=== PATIENT | male | born 1970 | race African-American/Black ===

== ENCOUNTER 2021-09-29 13:16 | Inpatient (IN) | payer BC, OTHER ==
[2021-09-29] MEDS ORDERED: dilTIAZem HCL 50 MG/10 ML - 10 ML VIAL IVPUSH ONE ×5 (13:53→21:59)
[2021-09-29] MEDS ORDERED: dilTIAZem HCL 50 MG/10 ML - 10 ML VIAL ONE (14:03)
[2021-09-29 14:13] LABS: BASO % 0.9 % (0-2.0); EOS % 2.6 % (0-4.5); HEMATOCRIT 35.4 % (35.4-49); LYMPH % 16.2 % (8-40); MCH 28.1 pg (25.7-33.7); MCHC 33.8 g/dl (32.0-35.9); MEAN CELL VOLUME 83.2 fl (80-96); MEAN PLT VOLUME 7.7 fl (7.5-11.1); NEUT % 70.3 % (42.8-82.8); PLATELET COUNT 360 10^3/uL (134-434); RBC 4.25 M/mm3 (4.00-5.60); RDW 15.3 % (11.9-15.9); WHITE BLOOD COUNT 6.4 K/mm3 (4.0-10.0)
[2021-09-29 14:19] LABS: INR 1.55 (0.83-1.09); PROTHROMBIN TIME (PATIENT) 17.9 SEC (9.7-13.0)
[2021-09-29 14:22] LABS: ACTIVATED PTT 29.3 SECONDS (25.2-36.5)
[2021-09-29 14:34] LABS: ALBUMIN 2.5 g/dl (3.4-5.0); BLOOD UREA NITROGEN 16.6 mg/dL (7-18); CALCIUM 8.4 mg/dL (8.5-10.1); MAGNESIUM 2.5 mg/dL (1.8-2.4)
[2021-09-29 14:37] LABS: CREATININE 1.1 mg/dL (0.55-1.3)
[2021-09-29 14:39] LABS: TOT PROT 5.6 g/dl (6.4-8.2)
[2021-09-29] MEDS ORDERED: ACETAMINOPHEN 1000 MG/100 ML BAG IVPB ONE (15:31)
[2021-09-29] MEDS ORDERED: ACETAMINOPHEN INJECTION 100 ML IVPB ONE (16:09)
[2021-09-29] MEDS ORDERED: DIGOXIN 0.5 MG/2 ML AMPUL IVPUSH ONE (16:52)
[2021-09-29] MEDS ORDERED: DIGOXIN 0.5 MG/2 ML AMPUL ONE (17:43)
[2021-09-29 21:06] LABS: URINE COLOR YELLOW
[2021-09-29 21:07] LABS: URINE APPEARANCE CLEAR; URINE BILIRUBIN NEGATIVE (NEGATIVE); URINE GLUCOSE (UA) NEGATIVE (NEGATIVE); URINE KETONE NEGATIVE (NEGATIVE); URINE LEUK ESTERASE NEGATIVE (NEGATIVE); URINE NITRITE NEGATIVE (NEGATIVE); URINE PROTEIN NEGATIVE (NEGATIVE)
[2021-09-29 21:49] LABS: HIV INTERPRETATION NEGATIVE (NEGATIVE)
[2021-09-29] MEDS ORDERED: CARVEDILOL 25 MG TABLET (FP) PO SCH (22:00)
[2021-09-29] MEDS ORDERED: ENOXAPARIN NA (PORCINE) 30 MG/0.3 ML DISP.SYRIN SQ SCH (22:00)
[2021-09-29] MEDS ORDERED: busPIRone HCL 5 MG TABLET ONE (23:25)
[2021-09-29] MEDS ORDERED: CARVEDILOL 25 MG TABLET (FP) ONE (23:26)
[2021-09-29] MEDS ORDERED: ENOXAPARIN NA (PORCINE) 80 MG/0.8 ML DISP.SYRIN SQ ONE (23:26)
[2021-09-29] MEDS ORDERED: ATORVASTATIN CA 40 MG TABLET (FP) ONE (23:26)
[2021-09-29] MEDS ORDERED: dilTIAZem HCL 125 MG/25 ML - 25 ML VIAL ONE (23:27)
[2021-09-29] MEDS: ENOXAPARIN NA (PORCINE) 80 MG/0.8 ML DISP.SYRIN SQ SCH (23:39)
[2021-09-29] MEDS: busPIRone HCL 5 MG TABLET PO SCH (23:39)
[2021-09-29] MEDS: ATORVASTATIN CA 40 MG TABLET (FP) PO SCH (23:39)
[2021-09-29] MEDS: CARVEDILOL 25 MG TABLET (FP) PO SCH (23:39)
[2021-09-30 01:10] VITALS: BMI 28.4
[2021-09-30] MEDS: busPIRone HCL 5 MG TABLET PO SCH ×2 (06:27→13:30)
[2021-09-30 07:24] LABS: BASO % 0.4 % (0-2.0); EOS % 4.6 % (0-4.5); HEMATOCRIT 33.1 % (35.4-49); HEMOGLOBIN 11.1 GM/dL (11.7-16.9); LYMPH % 15.8 % (8-40); MCH 27.9 pg (25.7-33.7); MCHC 33.5 g/dl (32.0-35.9); MEAN CELL VOLUME 83.3 fl (80-96); MEAN PLT VOLUME 7.9 fl (7.5-11.1); NEUT % 69.2 % (42.8-82.8); PLATELET COUNT 374 10^3/uL (134-434); RBC 3.98 M/mm3 (4.00-5.60); RDW 15.2 % (11.9-15.9); WHITE BLOOD COUNT 6.4 K/mm3 (4.0-10.0)
[2021-09-30 07:56] LABS: CALCIUM 7.8 mg/dL (8.5-10.1)
[2021-09-30 08:00] LABS: CREATININE 0.9 mg/dL (0.55-1.3)
[2021-09-30 08:01] LABS: BILIRUBIN,TOTAL 0.8 mg/dL (0.2-1); TOT PROT 4.9 g/dl (6.4-8.2)
[2021-09-30 08:18] LABS: ALBUMIN 1.9 g/dl (3.4-5.0)
[2021-09-30] MEDS: CARVEDILOL 25 MG TABLET (FP) PO SCH ×2 (09:57→21:27)
[2021-09-30] MEDS: ENOXAPARIN NA (PORCINE) 80 MG/0.8 ML DISP.SYRIN SQ SCH ×2 (09:57→21:32)
[2021-09-30] MEDS: ENALAPRIL MALEATE 5 MG TABLET PO SCH (09:57)
[2021-09-30] MEDS: guaiFENesin 200 MG/10 ML 10 ML UNIT-DOSE CUPS PO PRN ×2 (09:58→21:42)
[2021-09-30] MEDS ORDERED: ENALAPRIL MALEATE 5 MG TABLET PO SCH (10:00)
[2021-09-30] MEDS: buPROPion HCL 100 MG TABLET PO SCH ×3 (11:00→21:28)
[2021-09-30] MEDS ORDERED: methylPREDNISolone NA SUCC 40 MG/1 ML VIAL IVPUSH ONE (11:04)
[2021-09-30] MEDS: FAMOTIDINE 40 MG TABLET PO SCH (13:30)
[2021-09-30] MEDS: INSULIN (NOVOLOG) ASPART 100 UNITS/ML 10ML VIAL SQ SCH (17:17)
[2021-09-30] MEDS: ATORVASTATIN CA 40 MG TABLET (FP) PO SCH (21:27)
[2021-09-30] MEDS: INSULIN (LEVEMIR) 100 UNITS/ML UNITS SQ SCH ×2 (21:31→21:35)
[2021-09-30 23:07] LABS: SARS-CoV-2 NAA Not Detected (Not Detected)
[2021-10-01] MEDS: INSULIN (NOVOLOG) ASPART 100 UNITS/ML 10ML VIAL SQ SCH ×3 (06:41→17:31)
[2021-10-01 07:05] LABS: INR 1.4 (0.83-1.09); PROTHROMBIN TIME (PATIENT) 16.1 SEC (9.7-13.0)
[2021-10-01] MEDS: ENALAPRIL MALEATE 5 MG TABLET PO SCH (10:49)
[2021-10-01] MEDS: FAMOTIDINE 40 MG TABLET PO SCH (10:49)
[2021-10-01] MEDS: CARVEDILOL 25 MG TABLET (FP) PO SCH ×2 (10:49→21:54)
[2021-10-01] MEDS: buPROPion HCL 100 MG TABLET PO SCH ×2 (10:49→21:57)
[2021-10-01] MEDS: guaiFENesin 200 MG/10 ML 10 ML UNIT-DOSE CUPS PO PRN ×2 (10:49→22:06)
[2021-10-01] MEDS: ENOXAPARIN NA (PORCINE) 80 MG/0.8 ML DISP.SYRIN SQ SCH ×2 (10:50→22:06)
[2021-10-01] MEDS ORDERED: CEFTRIAXONE 1 GM in DEXTROSE 5%-WATER - 50 ML IVPB SCH (12:00)
[2021-10-01] MEDS ORDERED: DEXTROSE 5%-WATER - 50 ML IVPB ONE (13:17)
[2021-10-01] MEDS ORDERED: cefTRIAXone SODIUM 1 GM VIAL ONE (13:17)
[2021-10-01] MEDS ORDERED: WARFARIN NA 5 MG TABLET PO SCH (18:00)
[2021-10-01 18:07] LABS: SARS-CoV-2 NAA Detected (Not Detected)
[2021-10-01] MEDS ORDERED: DEXAMETHASONE SOD PHOSPHATE 10 MG/1 ML VIAL IVPUSH SCH (18:30)
[2021-10-01] MEDS ORDERED: REMDESIVIR 200 MG in SODIUM CHLORIDE 250 ML IVPB ONE (19:00)
[2021-10-01] MEDS: INSULIN (LEVEMIR) 100 UNITS/ML UNITS SQ SCH ×2 (21:53→22:02)
[2021-10-01] MEDS: ATORVASTATIN CA 40 MG TABLET (FP) PO SCH (21:54)
[2021-10-02] MEDS: INSULIN (NOVOLOG) ASPART 100 UNITS/ML 10ML VIAL SQ SCH ×3 (06:30→17:42)
[2021-10-02] MEDS: guaiFENesin 200 MG/10 ML 10 ML UNIT-DOSE CUPS PO PRN ×2 (06:31→20:24)
[2021-10-02 08:35] LABS: INR 1.39 (0.83-1.09)
[2021-10-02] MEDS: ENOXAPARIN NA (PORCINE) 80 MG/0.8 ML DISP.SYRIN SQ SCH ×2 (09:30→21:40)
[2021-10-02] MEDS: DEXAMETHASONE SOD PHOSPHATE 10 MG/1 ML VIAL IVPUSH SCH (09:30)
[2021-10-02] MEDS: ENALAPRIL MALEATE 5 MG TABLET PO SCH (09:31)
[2021-10-02] MEDS: FAMOTIDINE 40 MG TABLET PO SCH (09:31)
[2021-10-02] MEDS: CARVEDILOL 25 MG TABLET (FP) PO SCH ×2 (09:31→21:40)
[2021-10-02] MEDS: buPROPion HCL 100 MG TABLET PO SCH ×2 (09:32→21:40)
[2021-10-02] MEDS ORDERED: CHOLECALCIFEROL (VIT D3 5000 UNITS) 125 MCG TAB PO SCH (10:00)
[2021-10-02] MEDS ORDERED: DEXAMETHASONE SOD PHOSPHATE 10 MG/1 ML VIAL IVPUSH SCH (10:00)
[2021-10-02] MEDS: ASCORBIC ACID 500 MG TABLET (FP) PO SCH (10:19)
[2021-10-02] MEDS: ZINC SULFATE 220 MG CAPSULE (FP) PO SCH (10:19)
[2021-10-02] MEDS ORDERED: METOPROLOL TARTRATE 5 MG/5 ML VIAL IVPUSH PRN (12:19)
[2021-10-02] MEDS: WARFARIN NA 5 MG TABLET PO SCH (17:29)
[2021-10-02] MEDS: REMDESIVIR 100 MG in SODIUM CHLORIDE 250 ML IVPB SCH (20:06)
[2021-10-02] MEDS: ATORVASTATIN CA 40 MG TABLET (FP) PO SCH (21:40)
[2021-10-02] MEDS: INSULIN (LEVEMIR) 100 UNITS/ML UNITS SQ SCH (21:48)
[2021-10-03] MEDS ORDERED: MELATONIN 1 MG TABLET PO ONE (02:06)
[2021-10-03] MEDS: guaiFENesin 200 MG/10 ML 10 ML UNIT-DOSE CUPS PO PRN ×3 (02:43→20:08)
[2021-10-03] MEDS: INSULIN (NOVOLOG) ASPART 100 UNITS/ML 10ML VIAL SQ SCH ×3 (06:18→17:07)
[2021-10-03 07:50] LABS: INR 1.49 (0.83-1.09); PROTHROMBIN TIME (PATIENT) 17.2 SEC (9.7-13.0)
[2021-10-03] MEDS: CARVEDILOL 25 MG TABLET (FP) PO SCH ×2 (09:05→21:20)
[2021-10-03] MEDS: ASCORBIC ACID 500 MG TABLET (FP) PO SCH (09:05)
[2021-10-03] MEDS: ZINC SULFATE 220 MG CAPSULE (FP) PO SCH (09:05)
[2021-10-03] MEDS: ENALAPRIL MALEATE 5 MG TABLET PO SCH (09:05)
[2021-10-03] MEDS: CHOLECALCIFEROL (VIT D3) 1,000 UNIT (25 MCG) TABLET PO SCH (09:06)
[2021-10-03] MEDS: FAMOTIDINE 40 MG TABLET PO SCH (09:06)
[2021-10-03] MEDS: buPROPion HCL 100 MG TABLET PO SCH ×2 (09:06→20:08)
[2021-10-03] MEDS: DEXAMETHASONE SOD PHOSPHATE 10 MG/1 ML VIAL IVPUSH SCH (09:07)
[2021-10-03] MEDS: ENOXAPARIN NA (PORCINE) 80 MG/0.8 ML DISP.SYRIN SQ SCH ×2 (09:07→21:20)
[2021-10-03] MEDS: WARFARIN NA 5 MG TABLET PO SCH (18:40)
[2021-10-03] MEDS: REMDESIVIR 100 MG in SODIUM CHLORIDE 250 ML IVPB SCH (18:40)
[2021-10-03] MEDS: INSULIN (LEVEMIR) 100 UNITS/ML UNITS SQ SCH (21:19)
[2021-10-03] MEDS: ATORVASTATIN CA 40 MG TABLET (FP) PO SCH (21:20)
[2021-10-03] MEDS ORDERED: PHENOL 177 ML SPRAY BOTTLE MM PRN (23:57)
[2021-10-04] MEDS: METOPROLOL TARTRATE 5 MG/5 ML VIAL IVPUSH PRN ×3 (06:33→21:22)
[2021-10-04] MEDS: INSULIN (NOVOLOG) ASPART 100 UNITS/ML 10ML VIAL SQ SCH ×3 (06:38→17:41)
[2021-10-04 07:43] LABS: INR 1.71 (0.83-1.09); PROTHROMBIN TIME (PATIENT) 19.8 SEC (9.7-13.0)
[2021-10-04 08:07] LABS: CALCIUM 8.6 mg/dL (8.5-10.1)
[2021-10-04 08:08] LABS: BLOOD UREA NITROGEN 24.6 mg/dL (7-18)
[2021-10-04 08:12] LABS: BILIRUBIN,TOTAL 0.3 mg/dL (0.2-1); TOT PROT 5.1 g/dl (6.4-8.2)
[2021-10-04 08:30] LABS: BASO % 0.4 % (0-2.0); EOS % 0.6 % (0-4.5); HEMATOCRIT 34.6 % (35.4-49); HEMOGLOBIN 11.6 GM/dL (11.7-16.9); LYMPH % 23.8 % (8-40); MCH 27.7 pg (25.7-33.7); MCHC 33.5 g/dl (32.0-35.9); MEAN CELL VOLUME 82.8 fl (80-96); MEAN PLT VOLUME 7.8 fl (7.5-11.1); MONO % 8.6 % (3.8-10.2); NEUT % 66.6 % (42.8-82.8); PLATELET COUNT 569 10^3/uL (134-434); RBC 4.18 M/mm3 (4.00-5.60); RDW 15.2 % (11.9-15.9); WHITE BLOOD COUNT 8.4 K/mm3 (4.0-10.0)
[2021-10-04 08:37] LABS: ALBUMIN 2.4 g/dl (3.4-5.0)
[2021-10-04] MEDS: CHOLECALCIFEROL (VIT D3) 1,000 UNIT (25 MCG) TABLET PO SCH (09:17)
[2021-10-04] MEDS: CARVEDILOL 25 MG TABLET (FP) PO SCH ×2 (09:17→21:21)
[2021-10-04] MEDS: guaiFENesin 200 MG/10 ML 10 ML UNIT-DOSE CUPS PO PRN ×2 (09:17→20:17)
[2021-10-04] MEDS: FAMOTIDINE 40 MG TABLET PO SCH (09:17)
[2021-10-04] MEDS: ENALAPRIL MALEATE 5 MG TABLET PO SCH (09:18)
[2021-10-04] MEDS: ZINC SULFATE 220 MG CAPSULE (FP) PO SCH (09:18)
[2021-10-04] MEDS: ASCORBIC ACID 500 MG TABLET (FP) PO SCH (09:18)
[2021-10-04] MEDS: ENOXAPARIN NA (PORCINE) 80 MG/0.8 ML DISP.SYRIN SQ SCH ×2 (09:19→21:21)
[2021-10-04] MEDS: DEXAMETHASONE SOD PHOSPHATE 10 MG/1 ML VIAL IVPUSH SCH (09:19)
[2021-10-04 09:37] LABS: ERYTHROCYTE SEDIMENTATION RATE 36 mm/hr (0-20)
[2021-10-04] MEDS ORDERED: DIGOXIN 0.25 MG TABLET PO ONE (11:15)
[2021-10-04] MEDS: WARFARIN NA 5 MG TABLET PO SCH (17:43)
[2021-10-04] MEDS: REMDESIVIR 100 MG in SODIUM CHLORIDE 250 ML IVPB SCH (18:00)
[2021-10-04] MEDS: buPROPion HCL 100 MG TABLET PO SCH (20:11)
[2021-10-04] MEDS: INSULIN (LEVEMIR) 100 UNITS/ML UNITS SQ SCH (21:21)
[2021-10-04] MEDS: ATORVASTATIN CA 40 MG TABLET (FP) PO SCH (21:21)
[2021-10-05] MEDS: INSULIN (NOVOLOG) ASPART 100 UNITS/ML 10ML VIAL SQ SCH ×3 (06:54→17:34)
[2021-10-05] MEDS: ENALAPRIL MALEATE 5 MG TABLET PO SCH (10:08)
[2021-10-05] MEDS: CHOLECALCIFEROL (VIT D3) 1,000 UNIT (25 MCG) TABLET PO SCH (10:08)
[2021-10-05] MEDS: CARVEDILOL 25 MG TABLET (FP) PO SCH ×2 (10:08→22:41)
[2021-10-05] MEDS: buPROPion HCL 100 MG TABLET PO SCH ×2 (10:08→19:51)
[2021-10-05] MEDS: DIGOXIN 0.125 MG TABLET PO SCH (10:08)
[2021-10-05] MEDS: ZINC SULFATE 220 MG CAPSULE (FP) PO SCH (10:08)
[2021-10-05] MEDS: FAMOTIDINE 40 MG TABLET PO SCH (10:08)
[2021-10-05] MEDS: ASCORBIC ACID 500 MG TABLET (FP) PO SCH (10:08)
[2021-10-05] MEDS: DEXAMETHASONE SOD PHOSPHATE 10 MG/1 ML VIAL IVPUSH SCH (10:09)
[2021-10-05] MEDS: ENOXAPARIN NA (PORCINE) 80 MG/0.8 ML DISP.SYRIN SQ SCH ×2 (10:09→22:35)
[2021-10-05] MEDS ORDERED: ARIPIPRAZOLE NR ONE (14:00)
[2021-10-05 16:53] LABS: INR 2.01 (0.83-1.09); PROTHROMBIN TIME (PATIENT) 23.3 SEC (9.7-13.0)
[2021-10-05] MEDS: WARFARIN NA 5 MG TABLET PO SCH (17:30)
[2021-10-05] MEDS: REMDESIVIR 100 MG in SODIUM CHLORIDE 250 ML IVPB SCH (19:50)
[2021-10-05] MEDS: METOPROLOL TARTRATE 5 MG/5 ML VIAL IVPUSH PRN (19:50)
[2021-10-05] MEDS: ATORVASTATIN CA 40 MG TABLET (FP) PO SCH (22:40)
[2021-10-05] MEDS: INSULIN (LEVEMIR) 100 UNITS/ML UNITS SQ SCH (22:41)
[2021-10-06] MEDS ORDERED: INSULIN (NOVOLOG) ASPART 100 UNITS/ML 10ML VIAL SQ ONE (01:00)
[2021-10-06] MEDS: METOPROLOL TARTRATE 5 MG/5 ML VIAL IVPUSH PRN ×2 (01:04→19:54)
[2021-10-06] MEDS: guaiFENesin/CODEINE 10 ML UNIT-DOSE CUPS PO PRN ×2 (01:04→09:27)
[2021-10-06] MEDS: INSULIN (NOVOLOG) ASPART 100 UNITS/ML 10ML VIAL SQ SCH ×4 (06:47→17:28)
[2021-10-06 07:47] LABS: INR 2.22 (0.83-1.09); PROTHROMBIN TIME (PATIENT) 25.7 SEC (9.7-13.0)
[2021-10-06] MEDS: DEXAMETHASONE SOD PHOSPHATE 10 MG/1 ML VIAL IVPUSH SCH (09:25)
[2021-10-06] MEDS: ASCORBIC ACID 500 MG TABLET (FP) PO SCH (09:25)
[2021-10-06] MEDS: ZINC SULFATE 220 MG CAPSULE (FP) PO SCH (09:25)
[2021-10-06] MEDS: DIGOXIN 0.125 MG TABLET PO SCH (09:26)
[2021-10-06] MEDS: ENALAPRIL MALEATE 5 MG TABLET PO SCH (09:26)
[2021-10-06] MEDS: CARVEDILOL 25 MG TABLET (FP) PO SCH ×2 (09:26→21:06)
[2021-10-06] MEDS: CHOLECALCIFEROL (VIT D3) 1,000 UNIT (25 MCG) TABLET PO SCH (09:27)
[2021-10-06] MEDS: FAMOTIDINE 40 MG TABLET PO SCH (09:27)
[2021-10-06] MEDS: buPROPion HCL 100 MG TABLET PO SCH ×2 (09:27→19:55)
[2021-10-06] MEDS ORDERED: WARFARIN NA 7.5 MG TABLET PO SCH (10:06)
[2021-10-06] MEDS ORDERED: WARFARIN NA 5 MG TABLET PO SCH (16:13)
[2021-10-06] MEDS: ATORVASTATIN CA 40 MG TABLET (FP) PO SCH (21:06)
[2021-10-06] MEDS: INSULIN (LEVEMIR) 100 UNITS/ML UNITS SQ SCH (21:06)
[2021-10-07] MEDS: INSULIN (NOVOLOG) ASPART 100 UNITS/ML 10ML VIAL SQ SCH ×3 (06:15→17:36)
[2021-10-07] MEDS: guaiFENesin/CODEINE 10 ML UNIT-DOSE CUPS PO PRN ×3 (06:41→19:33)
[2021-10-07 08:31] LABS: INR 2.13 (0.83-1.09); PROTHROMBIN TIME (PATIENT) 24.7 SEC (9.7-13.0)
[2021-10-07 09:08] LABS: BASO % 0.2 % (0-2.0); EOS % 0.2 % (0-4.5); HEMATOCRIT 37.1 % (35.4-49); HEMOGLOBIN 12.1 GM/dL (11.7-16.9); LYMPH % 18.6 % (8-40); MCH 27.4 pg (25.7-33.7); MCHC 32.7 g/dl (32.0-35.9); MEAN CELL VOLUME 83.8 fl (80-96); MEAN PLT VOLUME 8.6 fl (7.5-11.1); MONO % 3.4 % (3.8-10.2); NEUT % 77.6 % (42.8-82.8); PLATELET COUNT 616 10^3/uL (134-434); RBC 4.42 M/mm3 (4.00-5.60); RDW 15.1 % (11.9-15.9); WHITE BLOOD COUNT 10.7 K/mm3 (4.0-10.0)
[2021-10-07 09:59] LABS: ANISOCYTOSIS 0; MACROCYTOSIS 0
[2021-10-07 10:34] LABS: ALBUMIN 2.2 g/dl (3.4-5.0); BLOOD UREA NITROGEN 23.8 mg/dL (7-18); CALCIUM 8.6 mg/dL (8.5-10.1)
[2021-10-07 10:38] LABS: CREATININE 1.1 mg/dL (0.55-1.3)
[2021-10-07 10:39] LABS: BILIRUBIN,TOTAL 0.2 mg/dL (0.2-1)
[2021-10-07 10:40] LABS: TOT PROT 5.3 g/dl (6.4-8.2)
[2021-10-07] MEDS: FAMOTIDINE 40 MG TABLET PO SCH (10:50)
[2021-10-07] MEDS: ZINC SULFATE 220 MG CAPSULE (FP) PO SCH (10:50)
[2021-10-07] MEDS: CHOLECALCIFEROL (VIT D3) 1,000 UNIT (25 MCG) TABLET PO SCH (10:51)
[2021-10-07] MEDS: ENALAPRIL MALEATE 5 MG TABLET PO SCH (10:51)
[2021-10-07] MEDS: DEXAMETHASONE SOD PHOSPHATE 10 MG/1 ML VIAL IVPUSH SCH (10:51)
[2021-10-07] MEDS: CARVEDILOL 25 MG TABLET (FP) PO SCH ×2 (10:51→22:03)
[2021-10-07] MEDS: buPROPion HCL 100 MG TABLET PO SCH ×2 (10:51→22:04)
[2021-10-07] MEDS: ASCORBIC ACID 500 MG TABLET (FP) PO SCH (10:51)
[2021-10-07] MEDS ORDERED: INSULIN (NOVOLOG) ASPART 100 UNITS/ML 10ML VIAL ONE (11:03)
[2021-10-07] MEDS ORDERED: DIGOXIN 0.125 MG TABLET PO SCH (11:53)
[2021-10-07] MEDS ORDERED: DIGOXIN 0.5 MG/2 ML AMPUL IVPUSH ONE (11:58)
[2021-10-07] MEDS: DIGOXIN 0.125 MG TABLET PO SCH ×2 (13:25→13:29)
[2021-10-07] MEDS ORDERED: WARFARIN NA 7.5 MG TABLET PO SCH (18:00)
[2021-10-07] MEDS: ATORVASTATIN CA 40 MG TABLET (FP) PO SCH (22:03)
[2021-10-07] MEDS: INSULIN (LEVEMIR) 100 UNITS/ML UNITS SQ SCH (22:03)
[2021-10-08] MEDS: INSULIN (NOVOLOG) ASPART 100 UNITS/ML 10ML VIAL SQ SCH ×2 (06:16→11:32)
[2021-10-08] MEDS: guaiFENesin/CODEINE 10 ML UNIT-DOSE CUPS PO PRN ×2 (06:17→14:04)
[2021-10-08 08:29] LABS: INR 2.11 (0.83-1.09); PROTHROMBIN TIME (PATIENT) 24.4 SEC (9.7-13.0)
[2021-10-08 09:04] VITALS: BP 128/79; TEMP 98.4
[2021-10-08] MEDS: buPROPion HCL 100 MG TABLET PO SCH (10:43)
[2021-10-08] MEDS: CHOLECALCIFEROL (VIT D3) 1,000 UNIT (25 MCG) TABLET PO SCH (10:44)
[2021-10-08] MEDS: ASCORBIC ACID 500 MG TABLET (FP) PO SCH (10:44)
[2021-10-08] MEDS: FAMOTIDINE 40 MG TABLET PO SCH (10:44)
[2021-10-08] MEDS: DEXAMETHASONE SOD PHOSPHATE 10 MG/1 ML VIAL IVPUSH SCH (10:45)
[2021-10-08] MEDS: ENALAPRIL MALEATE 5 MG TABLET PO SCH (10:45)
[2021-10-08] MEDS: ZINC SULFATE 220 MG CAPSULE (FP) PO SCH (10:45)
[2021-10-08] MEDS: CARVEDILOL 25 MG TABLET (FP) PO SCH (10:45)
[2021-10-08] MEDS: DIGOXIN 0.125 MG TABLET PO SCH (10:46)
[2021-10-08 10:48] VITALS: PULSE 102
[2021-10-08] MEDS ORDERED: INSULIN (NOVOLOG) ASPART 100 UNITS/ML 10ML VIAL ONE (11:16)
== END 2021-10-08 14:12 | disposition home or self-care (01) | DRG 177 ==
LOC: JER 13:16 → JERBED 15:24 → J4W 09-30 00:50
PROVIDERS: ADMIT Internal Medicine; ATTEND Internal Medicine
PROC: XW033E5 Introduction of Remdesivir Anti-infective into Peripheral Vein, Percutaneous Approach, New Technology Group 5 (ICD-10-PCS; principal; 2021-10-01)
DX: U07.1 COVID-19 (principal); J12.82 Pneumonia due to coronavirus disease 2019; I50.22 Chronic systolic (congestive) heart failure; J90 Pleural effusion, not elsewhere classified; I48.92 Unspecified atrial flutter; E11.9 Type 2 diabetes mellitus without complications; F20.9 Schizophrenia, unspecified; I34.1 Nonrheumatic mitral (valve) prolapse; I48.91 Unspecified atrial fibrillation; R09.02 Hypoxemia; I11.0 Hypertensive heart disease with heart failure; R16.0 Hepatomegaly, not elsewhere classified; R94.5 Abnormal results of liver function studies; Z95.2 Presence of prosthetic heart valve
CPT/HCPCS: 36415; 71045-TC-FY; 71275-TC; 74177-TC; 80053; 80061; 80162; 81003; 82105; 82550; 82553; 82962; 83036; 83615; 83735; 83880; 84443; 84484; 85025; 85610; 85651; 85730; 86038; 86140; 86480; 86704; 86708; 86803; 86850; 86900; 86901; 87040; 87086; 87389; 87517; 87633; 87899; 93005; 93010; 93306-TC; 93308; 94761; 99291; C9399; C9803-CS; J1100; Q9967; U0003; U0005

== ENCOUNTER 2021-11-22 07:20 | Inpatient (IN) | payer BC, OTHER ==
[2021-11-22] MEDS ORDERED: FUROSEMIDE 40 MG/4 ML INJECTABLE VIAL IVPUSH ONE (08:23)
[2021-11-22 08:38] LABS: BASO % 0.7 % (0-2.0); EOS % 0.7 % (0-4.5); HEMATOCRIT 39.6 % (35.4-49); LYMPH % 40.9 % (8-40); MCH 27.3 pg (25.7-33.7); MCHC 32.9 g/dl (32.0-35.9); MEAN PLT VOLUME 7.4 fl (7.5-11.1); NEUT % 47.7 % (42.8-82.8); PLATELET COUNT 346 10^3/uL (134-434); RBC 4.77 M/mm3 (4.00-5.60); RDW 16.8 % (11.9-15.9)
[2021-11-22 08:44] VITALS: BMI 32.5
[2021-11-22 08:51] LABS: INR 2.52 (0.83-1.09); PROTHROMBIN TIME (PATIENT) 29.2 SEC (9.7-13.0)
[2021-11-22 08:53] LABS: ACTIVATED PTT 37.4 SECONDS (25.2-36.5)
[2021-11-22 09:05] LABS: CALCIUM 8.3 mg/dL (8.5-10.1)
[2021-11-22 09:06] LABS: ALBUMIN 2.6 g/dl (3.4-5.0); BLOOD UREA NITROGEN 18.8 mg/dL (7-18)
[2021-11-22 09:10] LABS: TOT PROT 4.6 g/dl (6.4-8.2)
[2021-11-22 09:11] LABS: BILIRUBIN,TOTAL 1.4 mg/dL (0.2-1)
[2021-11-22 09:14] LABS: N-TERMINAL BNP 7139.7 pg/ml (5-125)
[2021-11-22 09:19] LABS: CREATININE 1.4 mg/dL (0.55-1.3)
[2021-11-22] MEDS ORDERED: FUROSEMIDE 40 MG/4 ML INJECTABLE VIAL ONE (09:26)
[2021-11-22 11:28] LABS: MAGNESIUM 1.9 mg/dL (1.8-2.4)
[2021-11-22] MEDS ORDERED: ARIPIPRAZOLE 400 MG IM SCH (14:15)
[2021-11-22] MEDS ORDERED: WARFARIN NA 3 MG TABLET PO SCH (18:00)
[2021-11-22] MEDS: INSULIN SLIDING SCALE (NOVOLOG) 1 VIAL SQ SCH (20:46)
[2021-11-22] MEDS: guaiFENesin/D-METHORPHAN HB 10 ML UNIT-DOSE CUPS PO PRN (21:11)
[2021-11-22] MEDS: WARFARIN NA 10 MG, WARFARIN NA 2 MG PO SCH (21:47)
[2021-11-22] MEDS: CARVEDILOL 25 MG TABLET (FP) PO SCH (23:06)
[2021-11-22] MEDS: buPROPion HCL 100 MG TABLET PO SCH (23:06)
[2021-11-22] MEDS ORDERED: ATORVASTATIN CA 10 MG TABLET (FP) ONE (23:11)
[2021-11-22] MEDS: INSULIN (LEVEMIR) 100 UNITS/ML UNITS SQ SCH (23:17)
[2021-11-22] MEDS: ATORVASTATIN CA 10 MG TABLET (FP) PO SCH (23:17)
[2021-11-22] MEDS: BUDESONIDE/FORMETEROL FUMARATE 160/4.5 mcg INHALER IH SCH (23:18)
[2021-11-23] MEDS: INSULIN SLIDING SCALE (NOVOLOG) 1 VIAL SQ SCH ×3 (06:35→16:51)
[2021-11-23 07:27] LABS: BASO % 0.3 % (0-2.0); EOS % 2.1 % (0-4.5); HEMATOCRIT 37.9 % (35.4-49); HEMOGLOBIN 12.5 GM/dL (11.7-16.9); LYMPH % 34.6 % (8-40); MCH 27.5 pg (25.7-33.7); MCHC 32.9 g/dl (32.0-35.9); MEAN CELL VOLUME 83.5 fl (80-96); MEAN PLT VOLUME 8.1 fl (7.5-11.1); MONO % 10.7 % (3.8-10.2); NEUT % 52.3 % (42.8-82.8); PLATELET COUNT 333 10^3/uL (134-434); RBC 4.54 M/mm3 (4.00-5.60); RDW 16.6 % (11.9-15.9); WHITE BLOOD COUNT 5.1 K/mm3 (4.0-10.0)
[2021-11-23 07:38] LABS: INR 2.72 (0.83-1.09); PROTHROMBIN TIME (PATIENT) 31.6 SEC (9.7-13.0)
[2021-11-23 07:46] LABS: BLOOD UREA NITROGEN 20.8 mg/dL (7-18)
[2021-11-23 07:47] LABS: ALBUMIN 2.3 g/dl (3.4-5.0)
[2021-11-23 07:50] LABS: CREATININE 1.2 mg/dL (0.55-1.3)
[2021-11-23 07:51] LABS: BILIRUBIN,TOTAL 0.8 mg/dL (0.2-1); TOT PROT 4.3 g/dl (6.4-8.2)
[2021-11-23] MEDS: CARVEDILOL 25 MG TABLET (FP) PO SCH ×2 (09:19→21:23)
[2021-11-23] MEDS: busPIRone HCL 5 MG TABLET PO SCH (09:19)
[2021-11-23] MEDS: ENALAPRIL MALEATE 5 MG TABLET PO SCH (09:19)
[2021-11-23] MEDS: DIGOXIN 0.125 MG TABLET PO SCH (09:20)
[2021-11-23] MEDS: FUROSEMIDE 40 MG/4 ML INJECTABLE VIAL IVPUSH SCH (09:21)
[2021-11-23] MEDS: BUDESONIDE/FORMETEROL FUMARATE 160/4.5 mcg INHALER IH SCH ×2 (09:21→21:23)
[2021-11-23] MEDS ORDERED: amLODIPine BESYLATE 10 MG TABLET (FP) PO SCH (10:00)
[2021-11-23] MEDS ORDERED: WARFARIN NA 2 MG TABLET ONE (16:34)
[2021-11-23] MEDS ORDERED: WARFARIN NA 5 MG TABLET ONE (16:35)
[2021-11-23] MEDS: WARFARIN NA 10 MG, WARFARIN NA 2 MG PO SCH (17:29)
[2021-11-23] MEDS ORDERED: WARFARIN NA 10 MG, WARFARIN NA 2 MG PO SCH (18:00)
[2021-11-23] MEDS: ATORVASTATIN CA 10 MG TABLET (FP) PO SCH (21:23)
[2021-11-23] MEDS: INSULIN (LEVEMIR) 100 UNITS/ML UNITS SQ SCH (21:29)
[2021-11-23] MEDS: guaiFENesin/D-METHORPHAN HB 10 ML UNIT-DOSE CUPS PO PRN (21:29)
[2021-11-23] MEDS: buPROPion HCL 100 MG TABLET PO SCH (21:45)
[2021-11-24] MEDS: INSULIN SLIDING SCALE (NOVOLOG) 1 VIAL SQ SCH ×3 (06:23→17:00)
[2021-11-24 07:30] LABS: BASO % 0.3 % (0-2.0); EOS % 1.8 % (0-4.5); HEMATOCRIT 30.6 % (35.4-49); HEMOGLOBIN 10.4 GM/dL (11.7-16.9); LYMPH % 34.8 % (8-40); MCH 28.1 pg (25.7-33.7); MCHC 34.1 g/dl (32.0-35.9); MEAN CELL VOLUME 82.5 fl (80-96); MEAN PLT VOLUME 7.7 fl (7.5-11.1); NEUT % 52.1 % (42.8-82.8); PLATELET COUNT 263 10^3/uL (134-434); RBC 3.71 M/mm3 (4.00-5.60); RDW 16.4 % (11.9-15.9); WHITE BLOOD COUNT 4.2 K/mm3 (4.0-10.0)
[2021-11-24 07:38] LABS: PROTHROMBIN TIME (PATIENT) 49.8 SEC (9.7-13.0)
[2021-11-24 07:59] LABS: CALCIUM 7.9 mg/dL (8.5-10.1)
[2021-11-24 08:02] LABS: CREATININE 0.9 mg/dL (0.55-1.3)
[2021-11-24 08:03] LABS: ALBUMIN 2.3 g/dl (3.4-5.0); BLOOD UREA NITROGEN 17.7 mg/dL (7-18)
[2021-11-24 08:04] LABS: BILIRUBIN,TOTAL 0.5 mg/dL (0.2-1); TOT PROT 4.3 g/dl (6.4-8.2)
[2021-11-24 08:14] LABS: INR 4.27 (0.83-1.09)
[2021-11-24] MEDS: DIGOXIN 0.125 MG TABLET PO SCH (10:11)
[2021-11-24] MEDS: FUROSEMIDE 40 MG/4 ML INJECTABLE VIAL IVPUSH SCH (10:11)
[2021-11-24] MEDS: busPIRone HCL 5 MG TABLET PO SCH (10:12)
[2021-11-24] MEDS: CARVEDILOL 25 MG TABLET (FP) PO SCH ×2 (10:12→21:21)
[2021-11-24] MEDS: ENALAPRIL MALEATE 5 MG TABLET PO SCH (10:12)
[2021-11-24] MEDS: BUDESONIDE/FORMETEROL FUMARATE 160/4.5 mcg INHALER IH SCH ×2 (10:13→21:28)
[2021-11-24] MEDS: guaiFENesin/D-METHORPHAN HB 10 ML UNIT-DOSE CUPS PO PRN ×2 (10:23→21:27)
[2021-11-24] MEDS: ATORVASTATIN CA 10 MG TABLET (FP) PO SCH (21:21)
[2021-11-24] MEDS: buPROPion HCL 100 MG TABLET PO SCH (21:22)
[2021-11-24] MEDS: INSULIN (LEVEMIR) 100 UNITS/ML UNITS SQ SCH (22:51)
[2021-11-25] MEDS: INSULIN SLIDING SCALE (NOVOLOG) 1 VIAL SQ SCH ×3 (07:27→18:32)
[2021-11-25 07:30] LABS: INR 3.8 (0.83-1.09); PROTHROMBIN TIME (PATIENT) 44.3 SEC (9.7-13.0)
[2021-11-25 08:20] LABS: BLOOD UREA NITROGEN 15.4 mg/dL (7-18); CALCIUM 8.3 mg/dL (8.5-10.1)
[2021-11-25 09:27] LABS: BASO % 0.4 % (0-2.0); EOS % 2.2 % (0-4.5); HEMATOCRIT 33.3 % (35.4-49); HEMOGLOBIN 10.9 GM/dL (11.7-16.9); LYMPH % 42.2 % (8-40); MCH 27.8 pg (25.7-33.7); MCHC 32.8 g/dl (32.0-35.9); MEAN CELL VOLUME 84.7 fl (80-96); MEAN PLT VOLUME 8.4 fl (7.5-11.1); MONO % 11.6 % (3.8-10.2); NEUT % 43.6 % (42.8-82.8); PLATELET COUNT 264 10^3/uL (134-434); RBC 3.93 M/mm3 (4.00-5.60); RDW 16.9 % (11.9-15.9); WHITE BLOOD COUNT 3.9 K/mm3 (4.0-10.0)
[2021-11-25] MEDS: busPIRone HCL 5 MG TABLET PO SCH (09:31)
[2021-11-25] MEDS: DIGOXIN 0.125 MG TABLET PO SCH (09:32)
[2021-11-25] MEDS: FUROSEMIDE 40 MG/4 ML INJECTABLE VIAL IVPUSH SCH (09:32)
[2021-11-25] MEDS: CARVEDILOL 25 MG TABLET (FP) PO SCH ×2 (09:32→21:31)
[2021-11-25] MEDS: BUDESONIDE/FORMETEROL FUMARATE 160/4.5 mcg INHALER IH SCH ×2 (09:33→22:00)
[2021-11-25] MEDS: SPIRONOLACTONE 25 MG TABLET PO SCH (14:00)
[2021-11-25] MEDS ORDERED: BENZOCAINE/MENTHOL 1 EACH LOZENGE MM ONE (16:30)
[2021-11-25] MEDS ORDERED: WARFARIN NA 2 MG TABLET ONE (18:28)
[2021-11-25] MEDS ORDERED: WARFARIN NA 5 MG TABLET ONE (18:28)
[2021-11-25] MEDS: JARDIANCE 10MG TABLET PO SCH (18:29)
[2021-11-25] MEDS: WARFARIN NA 10 MG, WARFARIN NA 2 MG PO SCH (18:29)
[2021-11-25] MEDS: buPROPion HCL 100 MG TABLET PO SCH (21:30)
[2021-11-25] MEDS: ZOLPIDEM TARTRATE 5 MG TABLET PO PRN (21:32)
[2021-11-25] MEDS: INSULIN (LEVEMIR) 100 UNITS/ML UNITS SQ SCH (21:42)
[2021-11-26] MEDS: INSULIN SLIDING SCALE (NOVOLOG) 1 VIAL SQ SCH ×3 (06:53→18:00)
[2021-11-26 10:09] LABS: INR 2.78 (0.83-1.09); PROTHROMBIN TIME (PATIENT) 32.3 SEC (9.7-13.0)
[2021-11-26 10:40] LABS: BLOOD UREA NITROGEN 15.5 mg/dL (7-18)
[2021-11-26 10:41] LABS: TOT PROT 5.4 g/dl (6.4-8.2)
[2021-11-26 10:42] LABS: BILIRUBIN,TOTAL 0.7 mg/dL (0.2-1); CALCIUM 9.1 mg/dL (8.5-10.1)
[2021-11-26] MEDS: FUROSEMIDE 40 MG/4 ML INJECTABLE VIAL IVPUSH SCH (10:54)
[2021-11-26] MEDS: busPIRone HCL 5 MG TABLET PO SCH (10:54)
[2021-11-26] MEDS: CARVEDILOL 25 MG TABLET (FP) PO SCH ×2 (10:55→21:21)
[2021-11-26] MEDS: BUDESONIDE/FORMETEROL FUMARATE 160/4.5 mcg INHALER IH SCH ×2 (10:55→21:51)
[2021-11-26] MEDS: JARDIANCE 10MG TABLET PO SCH (10:55)
[2021-11-26] MEDS: DIGOXIN 0.125 MG TABLET PO SCH (10:55)
[2021-11-26] MEDS: SPIRONOLACTONE 25 MG TABLET PO SCH (10:55)
[2021-11-26 11:39] LABS: ALBUMIN 2.9 g/dl (3.4-5.0)
[2021-11-26] MEDS: WARFARIN NA 10 MG TABLET PO SCH (21:00)
[2021-11-26] MEDS: ZOLPIDEM TARTRATE 5 MG TABLET PO PRN (21:21)
[2021-11-26] MEDS: buPROPion HCL 100 MG TABLET PO SCH (21:22)
[2021-11-26] MEDS: INSULIN (LEVEMIR) 100 UNITS/ML UNITS SQ SCH (21:50)
[2021-11-27] MEDS: INSULIN SLIDING SCALE (NOVOLOG) 1 VIAL SQ SCH ×3 (06:13→17:31)
[2021-11-27 07:35] LABS: INR 2.63 (0.83-1.09); PROTHROMBIN TIME (PATIENT) 30.5 SEC (9.7-13.0)
[2021-11-27 07:36] LABS: BASO % 0.3 % (0-2.0); EOS % 2.1 % (0-4.5); HEMATOCRIT 32.1 % (35.4-49); LYMPH % 45.3 % (8-40); MCH 28.4 pg (25.7-33.7); MCHC 34.2 g/dl (32.0-35.9); MEAN CELL VOLUME 83.1 fl (80-96); MEAN PLT VOLUME 7.7 fl (7.5-11.1); MONO % 13.1 % (3.8-10.2); NEUT % 39.2 % (42.8-82.8); PLATELET COUNT 256 10^3/uL (134-434); RBC 3.86 M/mm3 (4.00-5.60); RDW 17.2 % (11.9-15.9); WHITE BLOOD COUNT 4.3 K/mm3 (4.0-10.0)
[2021-11-27 07:46] LABS: ALBUMIN 2.7 g/dl (3.4-5.0); BLOOD UREA NITROGEN 17.6 mg/dL (7-18); CALCIUM 8.8 mg/dL (8.5-10.1)
[2021-11-27 07:49] LABS: CREATININE 1.2 mg/dL (0.55-1.3)
[2021-11-27 07:50] LABS: BILIRUBIN,TOTAL 0.6 mg/dL (0.2-1)
[2021-11-27 07:51] LABS: TOT PROT 5.3 g/dl (6.4-8.2)
[2021-11-27] MEDS: busPIRone HCL 5 MG TABLET PO SCH (09:41)
[2021-11-27] MEDS: DIGOXIN 0.125 MG TABLET PO SCH (09:41)
[2021-11-27] MEDS: FUROSEMIDE 40 MG/4 ML INJECTABLE VIAL IVPUSH SCH (09:41)
[2021-11-27] MEDS: SPIRONOLACTONE 25 MG TABLET PO SCH (09:41)
[2021-11-27] MEDS: CARVEDILOL 25 MG TABLET (FP) PO SCH ×2 (09:41→22:35)
[2021-11-27] MEDS: JARDIANCE 10MG TABLET PO SCH (09:42)
[2021-11-27] MEDS: BUDESONIDE/FORMETEROL FUMARATE 160/4.5 mcg INHALER IH SCH ×2 (09:42→22:00)
[2021-11-27] MEDS: WARFARIN NA 10 MG TABLET PO SCH (17:44)
[2021-11-27] MEDS: INSULIN (LEVEMIR) 100 UNITS/ML UNITS SQ SCH (22:00)
[2021-11-27] MEDS: ZOLPIDEM TARTRATE 5 MG TABLET PO PRN (22:36)
[2021-11-27] MEDS: buPROPion HCL 100 MG TABLET PO SCH (22:36)
[2021-11-28] MEDS: INSULIN SLIDING SCALE (NOVOLOG) 1 VIAL SQ SCH ×3 (06:19→18:37)
[2021-11-28 07:49] LABS: BASO % 0.4 % (0-2.0); EOS % 1.6 % (0-4.5); HEMATOCRIT 32.5 % (35.4-49); HEMOGLOBIN 11.1 GM/dL (11.7-16.9); LYMPH % 46.1 % (8-40); MCH 28.3 pg (25.7-33.7); MCHC 34.2 g/dl (32.0-35.9); MEAN CELL VOLUME 82.9 fl (80-96); MEAN PLT VOLUME 7.4 fl (7.5-11.1); MONO % 14.2 % (3.8-10.2); NEUT % 37.7 % (42.8-82.8); PLATELET COUNT 244 10^3/uL (134-434); RBC 3.92 M/mm3 (4.00-5.60); RDW 17.2 % (11.9-15.9); WHITE BLOOD COUNT 4.1 K/mm3 (4.0-10.0)
[2021-11-28 08:20] LABS: ALBUMIN 2.9 g/dl (3.4-5.0)
[2021-11-28 08:21] LABS: BLOOD UREA NITROGEN 25.7 mg/dL (7-18); CREATININE 1.2 mg/dL (0.55-1.3)
[2021-11-28 08:22] LABS: BILIRUBIN,TOTAL 0.5 mg/dL (0.2-1); INR 2.93 (0.83-1.09); PROTHROMBIN TIME (PATIENT) 34.1 SEC (9.7-13.0); TOT PROT 5.5 g/dl (6.4-8.2)
[2021-11-28 08:24] LABS: CALCIUM 9.5 mg/dL (8.5-10.1)
[2021-11-28] MEDS: busPIRone HCL 5 MG TABLET PO SCH (10:33)
[2021-11-28] MEDS: FUROSEMIDE 40 MG/4 ML INJECTABLE VIAL IVPUSH SCH (10:33)
[2021-11-28] MEDS: CARVEDILOL 25 MG TABLET (FP) PO SCH ×2 (10:33→22:02)
[2021-11-28] MEDS: SPIRONOLACTONE 25 MG TABLET PO SCH (10:35)
[2021-11-28] MEDS: DIGOXIN 0.125 MG TABLET PO SCH (10:37)
[2021-11-28] MEDS: BUDESONIDE/FORMETEROL FUMARATE 160/4.5 mcg INHALER IH SCH ×2 (10:39→23:46)
[2021-11-28] MEDS: JARDIANCE 10MG TABLET PO SCH (10:39)
[2021-11-28] MEDS ORDERED: WARFARIN NA 5 MG TABLET ONE (17:51)
[2021-11-28] MEDS ORDERED: WARFARIN NA 3 MG TABLET ONE (17:52)
[2021-11-28] MEDS ORDERED: WARFARIN NA 5 MG, WARFARIN NA 3 MG PO SCH (18:00)
[2021-11-28] MEDS ORDERED: WARFARIN NA 10 MG TABLET PO SCH (18:00)
[2021-11-28] MEDS: buPROPion HCL 100 MG TABLET PO SCH (22:02)
[2021-11-28] MEDS ORDERED: ZOLPIDEM TARTRATE 5 MG TABLET PO PRN (23:07)
[2021-11-28] MEDS: BENZOCAINE/MENTH/CETYLPYRD CL 1 EACH LOZENGE MM PRN (23:35)
[2021-11-28] MEDS: INSULIN (LEVEMIR) 100 UNITS/ML UNITS SQ SCH (23:46)
[2021-11-29] MEDS: INSULIN SLIDING SCALE (NOVOLOG) 1 VIAL SQ SCH ×3 (06:37→18:32)
[2021-11-29 07:50] LABS: INR 2.81 (0.83-1.09); PROTHROMBIN TIME (PATIENT) 32.6 SEC (9.7-13.0)
[2021-11-29 07:59] LABS: BLOOD UREA NITROGEN 26.7 mg/dL (7-18)
[2021-11-29 08:02] LABS: CREATININE 1.5 mg/dL (0.55-1.3)
[2021-11-29 08:03] LABS: BILIRUBIN,TOTAL 0.4 mg/dL (0.2-1)
[2021-11-29 08:04] LABS: TOT PROT 5.9 g/dl (6.4-8.2)
[2021-11-29 09:17] VITALS: BP 127/90; PULSE 76; TEMP 98.8
[2021-11-29] MEDS: DIGOXIN 0.125 MG TABLET PO SCH (10:10)
[2021-11-29] MEDS: FUROSEMIDE 40 MG/4 ML INJECTABLE VIAL IVPUSH SCH (10:10)
[2021-11-29] MEDS: SPIRONOLACTONE 25 MG TABLET PO SCH (10:10)
[2021-11-29] MEDS: busPIRone HCL 5 MG TABLET PO SCH (10:11)
[2021-11-29] MEDS: CARVEDILOL 25 MG TABLET (FP) PO SCH (10:11)
[2021-11-29] MEDS: BUDESONIDE/FORMETEROL FUMARATE 160/4.5 mcg INHALER IH SCH (10:12)
[2021-11-29] MEDS: JARDIANCE 10MG TABLET PO SCH (10:12)
[2021-11-29] MEDS: BENZOCAINE/MENTH/CETYLPYRD CL 1 EACH LOZENGE MM PRN (10:21)
== END 2021-11-29 16:55 | disposition left against medical advice (07) | DRG 291 ==
LOC: JER 07:20 → JERBED 13:28 → J4W 11-23 02:54
PROVIDERS: ADMIT Internal Medicine; ATTEND Internal Medicine
DX: I11.0 Hypertensive heart disease with heart failure (principal); I50.23 Acute on chronic systolic (congestive) heart failure; J18.9 Pneumonia, unspecified organism; F20.89 Other schizophrenia; Z95.2 Presence of prosthetic heart valve; E11.9 Type 2 diabetes mellitus without complications; E66.9 Obesity, unspecified; Z68.28 Body mass index [BMI] 28.0-28.9, adult; R16.0 Hepatomegaly, not elsewhere classified; I48.91 Unspecified atrial fibrillation; R79.89 Other specified abnormal findings of blood chemistry; R00.0 Tachycardia, unspecified
CPT/HCPCS: 0241U-QW; 36415; 71045-TC-FY; 74178-TC; 76705-TC; 80048; 80053; 80162; 82105; 82550; 82553; 82962; 82977; 83735; 83880; 84450; 84460; 84484; 85025; 85610; 85730; 93005; 93010; 99285-25; C9803-CS; Q9967; U0003; U0005

== ENCOUNTER → 2022-05-13 | Emergency (ER) | payer BC, OTHER ==
[~2022-05-13] MED LIST: DEXTROSE 50%-WATER 25 GM/50 ML DISP.SYRIN ONE; SODIUM CHLORIDE 0.9% 500 ML INFUS.BAG IV ONE
[2022-05-13 12:44] VITALS: BP 0/0; BMI 35.9
== END | disposition expired ==
LOC: JER 12:01
PROC: 0BH17EZ Insertion of Endotracheal Airway into Trachea, Via Natural or Artificial Opening (ICD-10-PCS; principal; 2022-05-13)
DX: I46.9 Cardiac arrest, cause unspecified (principal)
CPT/HCPCS: 82962; 99285-25